=== PATIENT | female | born 1960 | race American Indian/Alaskan Native ===

== ENCOUNTER 2017-03-14 00:40 | Inpatient (IN) | payer MEDICARE, MEDICAID ==
[2017-03-14] MEDS ORDERED: Sodium Chloride 0.9% 1,000 ML IV ONE (01:09)
--- NOTE | 2017-03-14 01:44 | C.PDOC ---
Time Seen by Provider: 03/14/17 01:42 Chief Complaint (Nursing): Medical Clearance History Per: Patient History/Exam Limitations: no limitations Onset/Duration Of Symptoms: Hrs Current Symptoms Are (Timing): Worse Severity: Moderate Pain Scale Rating Of: 7 Location: left knee pain Reports Recent Trauma: recent left knee surgery-knee replacement 03/08/17 Reports Recently: Hospitalized Recent travel outside of the [place]: No Additional History Per: Patient Past Medical History Vital Signs: Last Vital Signs Temp 98.6 F 03/14/17 00:48 Pulse 118 H 03/14/17 00:48 Resp 20 03/14/17 00:48 BP 149/67 03/14/17 00:48 Pulse Ox 99 03/14/17 02:06 - Medical History PMH: Asthma, HTN, Sleep Apnea Surgical History: Cholecystectomy, Endoscopy (2 yrs ago) Family History: States: Unknown Family Hx - Social History Hx Tobacco Use: No Hx Alcohol Use: No Hx Substance Use: No - Immunization History Hx Tetanus Toxoid Vaccination: No Hx Influenza Vaccination: No Hx Pneumococcal Vaccination: No Review Of Systems Constitutional: Negative for: Fever, Chills, Sweats Cardiovascular: Negative for: Chest Pain, Palpitations, Orthopnea Respiratory: Negative for: Cough, Shortness of Breath Gastrointestinal: Negative for: Nausea, Vomiting, Abdominal Pain, Diarrhea Genitourinary: Negative for: Dysuria, Frequency, Incontinence Skin: Negative for: Rash Neurological: Negative for: Weakness, Numbness, Incoordination, Change in Speech Psych: Negative for: Anxiety, Depression Physical Exam - Physical Exam Appears: Well, Other (moderate distress due to pain) Skin: Normal Color, Warm, Dry Head: Atraumatic Nose: Normal Neck: Normal Chest: Symmetrical, No Deformity, No Tenderness, No Ecchymosis Cardiovascular: Rhythm Regular Respiratory: Normal Breath Sounds Gastrointestinal/Abdominal: Normal Exam Back: Normal Inspection Extremity: Tenderness (presence of operative wound on dorsum of left knee, swollen and tender to touch.), Swelling ED Course And Treatment - Laboratory Results Result Diagrams: 03/14/17 02:10 03/14/17 02:10 O2 Sat by Pulse Oximetry: 99 Disposition Discussed With : Tamika Murry Doctor Will See Patient In The: Hospital Counseled Patient/Family Regarding: Diagnosis - Disposition Disposition: HOSPITALIZED Disposition Time: 03:23 Condition: STABLE - POA Present On Arrival: None - Clinical Impression Clinical Impression: Cellulitis, Knee pain, Knee joint replacement status
[2017-03-14 02:13] LABS: BASO # 0.1 K/uL (0.0-0.2); BASO % 1.5 % (0.0-2.0); EOS # 0.4 K/uL (0.0-0.7); EOS % 3.9 % (0.0-4.0); HEMATOCRIT 30.9 % (34.0-47.0); LYMPH # 1.7 K/uL (1.0-4.3); LYMPH % 16.5 % (20.0-40.0); MEAN CELL VOLUME 81.9 fL (81.0-99.0); MEAN CORPUSCULAR HEMOGLOBIN 25.6 pg (27.0-31.0); MEAN CORPUSCULAR HGB CONC 31.3 g/dL (33.0-37.0); MEAN PLATELET VOLUME 8.9 fL (7.2-11.7); MONO # 1.2 K/uL (0.0-0.8); MONO % 12.2 % (0.0-10.0); RED CELL DISTRIBUTION WIDTH 13.8 % (11.5-14.5); WHITE BLOOD COUNT 10.2 K/uL (4.8-10.8)
[2017-03-14 02:27] LABS: CHLORIDE 98 mmol/L (98-107)
[2017-03-14 02:28] LABS: SODIUM 138 mmol/L (132-148)
[2017-03-14 02:31] LABS: ALKALINE PHOSPHATASE 116 U/L (38-126); AST/SGOT 31 U/L (14-36); BILIRUBIN,TOTAL 0.5 mg/dL (0.2-1.3); BLOOD UREA NITROGEN 18 mg/dL (7-17); CARBON DIOXIDE 29 mmol/L (22-30); GFR AFRICAN-AMERICAN > 60; TOTAL PROTEIN 6.9 g/dL (6.3-8.3)
[2017-03-14 02:32] LABS: ALT/SGPT 47 U/L (9-52); CALCIUM 8.5 mg/dl (8.6-10.4); GLUCOSE,RANDOM 123 mg/dL (65-105)
--- NOTE | 2017-03-14 03:14 | CT ---
EXAM: CT Left Lower Extremity Without Intravenous Contrast, Knee CLINICAL HISTORY: 57 years old, female; Pain; Knee; Left; Prior surgery; Surgery type: Left knee replacement; Patient HX: 9-16; Additional info: Swelling- post knee replacement with swelling TECHNIQUE: Axial computed tomography images of the left knee without intravenous contrast. This CT exam was performed using one or more of the following dose reduction techniques: automated exposure control, adjustment of the mA and/or kV according to patient size, and/or use of iterative reconstruction technique. Coronal and sagittal reformatted images were created and reviewed. COMPARISON: No relevant prior studies available. FINDINGS: Limitations: Lack of intravenous contrast. Bones/joints: Total knee arthroplasty. No hardware loosening. No acute fracture. No dislocation. Soft tissues: Small to moderate joint effusion with few foci of air. Linear scar within anterior soft tissues. Multiple small radiopaque densities along scar. Few small radiopaque densities within/along joint. Moderate stranding within subcutaneous tissues. Mild skin thickening. IMPRESSION: 1. Joint effusion. Air within joint space. DDX: Recent surgery, infection. 2. Soft tissue edema, possibly cellulitis. 3. Small radiopaque densities within soft tissue/joint space. Clinical correlation is needed. 4. Incidental/non-acute findings are described above.
[2017-03-14] MEDS ORDERED: cefTRIAXone IV 1 gm in Dextros 50 ML IVPB ONE ×2 (03:17→03:39)
[2017-03-14] MEDS ORDERED: Morphine 4 MG/ML VIAL IV ONE (03:52)
[2017-03-14 05:42] VITALS: RESP 20
[2017-03-14] MEDS ORDERED: Oxycodone/Acetaminophen 5/325 mg Tab PO PRN (08:25)
[2017-03-14] MEDS ORDERED: Pantoprazole 40 mg EC Tab PO SCH (10:00)
[2017-03-14] MEDS ORDERED: oxyCODONE 10 mg ER Tab (oxyCONTIN) PO SCH (10:00)
[2017-03-14] MEDS ORDERED: Multiple Vitamins Tab PO SCH (10:00)
[2017-03-14 15:42] VITALS: O2SAT 95
--- NOTE | 2017-03-14 17:17 | CP.PCM.HP ---
History of Present Illness - History of Present Illness History of Present Illness: pt came in to er from rehab for pain nausea redness wound s/p l knee surgery a weeke ago Present on Admission - Present on Admission Any Indicators Present on Admission: No Review of Systems - Review of Systems Systems not reviewed;Unavailable: Acuity of Condition - Constitutional Constitutional: Fatigue, Sleep Apnea - EENT Eyes: As Per HPI Ears: As Per HPI Nose/Mouth/Throat: As Per HPI - Breasts Breasts: As Per HPI - Cardiovascular Cardiovascular: Dyspnea on Exertion - Respiratory Respiratory: Dyspnea on Exertion - Gastrointestinal Gastrointestinal: Nausea - Genitourinary Genitourinary: As Per HPI - Reproductive: Female Reproductive:Female: As Per HPI - Menstruation Menstruation: Post Menopausal - Musculoskeletal Musculoskeletal: Back Pain, Joint Swelling, Stiffness - Integumentary Integumentary: As Per HPI - Neurological Neurological: Weakness - Psychiatric Psychiatric: As Per HPI - Endocrine Endocrine: As Per HPI - Hematologic/Lymphatic Hematologic: As Per HPI Past Patient History - Infectious Disease Hx of Infectious Diseases: None - Past Medical History & Family History Past Medical History?: Yes - Past Social History Smoking Status: Never Smoked - CARDIAC Hx Cardiac Disorders: Yes Hx Hypertension: Yes - PULMONARY Hx Respiratory Disorders: Yes Hx Asthma: Yes Hx Sleep Apnea: Yes - NEUROLOGICAL Hx Neurological Disorder: No - HEENT Hx HEENT Problems: No - RENAL Hx Chronic Kidney Disease: No - ENDOCRINE/METABOLIC Hx Endocrine Disorders: No - HEMATOLOGICAL/ONCOLOGICAL Hx Blood Disorders: No - INTEGUMENTARY Hx Dermatological Problems: No - MUSCULOSKELETAL/RHEUMATOLOGICAL Hx Musculoskeletal Disorders: Yes Hx Falls: Yes - GASTROINTESTINAL Hx Gastrointestinal Disorders: Yes Hx Gastroesophageal Reflux: Yes - GENITOURINARY/GYNECOLOGICAL Hx Genitourinary Disorders: No - PSYCHIATRIC Hx Psychophysiologic Disorder: No Hx Substance Use: No - SURGICAL HISTORY Hx Surgeries: Yes Hx Cholecystectomy: Yes Hx Joint Replacement: Yes (left knee 03/05/17) - ANESTHESIA Hx Anesthesia: Yes Hx Anesthesia Reactions: No Hx Malignant Hyperthermia: No Has any member of the family had a problem w/ anesthesia?: No Meds Allergies/Adverse Reactions: Allergies Allergy/AdvReac Type Severity Reaction Status Date / Time mupirocin [From Bactroban] Allergy Verified 03/14/17 01:00 mupirocin calcium Allergy Verified 03/14/17 01:00 [From Bactroban] Physical Exam - Constitutional Appears: Non-toxic - Head Exam Head Exam: NORMAL INSPECTION - Eye Exam Eye Exam: Normal appearance Pupil Exam: NORMAL ACCOMODATION - ENT Exam ENT Exam: Normal Exam - Neck Exam Neck exam: Positive for: Full Rom - Respiratory Exam Respiratory Exam: Clear to Auscultation Bilateral - Cardiovascular Exam Cardiovascular Exam: REGULAR RHYTHM - GI/Abdominal Exam GI & Abdominal Exam: Normal Bowel Sounds - Rectal Exam Rectal Exam: NORMAL INSPECTION - Extremities Exam Additional comments: l knee wound dressing intact - Back Exam Back exam: NORMAL INSPECTION - Neurological Exam Neurological exam: Oriented x3 - Psychiatric Exam Psychiatric exam: Normal Affect - Skin Skin Exam: Normal Color Results - Vital Signs Recent Vital Signs: Last Vital Signs Temp 98 F 03/14/17 15:38 Pulse 99 H 03/14/17 15:38 Resp 20 03/14/17 15:38 BP 126/76 03/14/17 15:38 Pulse Ox 95 03/14/17 15:38 - Labs Result Diagrams: 03/14/17 02:10 03/14/17 02:10 Assessment & Plan - Assessment and Plan (Free Text) Assessment: s/p l knee surgery possibl celulitis hyprglyceamia aneamia Plan: as per her orthopedic pt [facility] be transfered [facility] - Date & Time Date: 03/14/17 Time: 17:22
[2017-03-14 19:00] VITALS: BP 142/78
[2017-03-14 19:13] VITALS: PULSE 104; TEMP 98
[2017-03-15] MEDS ORDERED: cefTRIAXone IV 1 gm in Dextros 50 ML IVPB SCH (10:00)
== END 2017-03-14 19:21 | disposition short-term general hospital (02) | DRG 603 ==
LOC: C.ER 00:40 → C.6T 03:26 → C.5T 04:08
PROVIDERS: ADMIT Internal Medicine; ATTEND Internal Medicine
DX: L03.116 Cellulitis of left lower limb (principal); I10 Essential (primary) hypertension; G47.30 Sleep apnea, unspecified; J45.909 Unspecified asthma, uncomplicated; Z96.652 Presence of left artificial knee joint; Z90.49 Acquired absence of other specified parts of digestive tract

== ENCOUNTER 2019-01-06 13:25 | Outpatient (CLI) | payer OTHER | END 2019-01-06 13:26 | disposition home or self-care (01) | LOC: C.DEXAIC 13:25 ==

== ENCOUNTER 2019-01-15 09:01 | Day surgery (SDC) | payer OTHER ==
[2019-01-15 10:08] VITALS: BMI 28.3
[2019-01-15 10:40] VITALS: TEMP 98
[2019-01-15] MEDS ORDERED: Lactated Ringer's 500 ML IV ONE ×2 (14:16)
[2019-01-15] MEDS ORDERED: Midazolam 2 MG/2 ML VIAL ONE (14:17)
[2019-01-15] MEDS ORDERED: Propofol 10 mg/ml Inj (20 ML) ONE (14:18)
[2019-01-15 15:56] VITALS: BP 150/76; PULSE 60; RESP 15; O2SAT 100
== END 2019-01-15 15:57 | disposition home or self-care (01) ==
LOC: C.ENDO 09:01
PROVIDERS: ATTEND Internal Medicine Gastroenterology
DX: Z12.11 Encounter for screening for malignant neoplasm of colon (principal); K64.1 Second degree hemorrhoids; K57.90 Diverticulosis of intestine, part unspecified, without perforation or abscess without bleeding; E11.9 Type 2 diabetes mellitus without complications; J45.909 Unspecified asthma, uncomplicated; Z85.3 Personal history of malignant neoplasm of breast
CPT/HCPCS: 45378; 82948; J2250; J2704; J7120